=== PATIENT | male | born 2000 | race American Indian/Alaskan Native ===

== ENCOUNTER 2020-06-13 01:24 | Emergency (ER) | payer SELFPAY ==
[2020-06-13] MEDS ORDERED: levETIRAcetam 1000 MG/NS 0.75% 1,000 MG/100 ML BAG IV ONE (01:54)
--- NOTE | 2020-06-13 01:58 | Emergency Department Report ---
ED Seizure HPI - General Stated Complaint: SZ Time Seen by Provider: 06/13/20 01:53 - History of Present Illness Initial Comments: Patient is 20 years old male with history of seizure on Keppra. Patient brought to the emergency room via EMS from home after patient had 1 episode of generalized tonic-clonic seizure witnessed by family. EMS stated that upon arrival patient is postictal. Upon arrival to the ER patient is alert, oriented x3 no acute distress. Patient stated that he is taking Keppra 750 mg twice a day however he ran out of his medication for the last 2 to 3 days. Patient denied any fever or chills. No head injury or any other trauma. MD Complaint: seizure -: Sudden, This evening Description of Episode: loss of consciousness, tonic-clonic movement, bladder incontinence, post-event confusion Witnessed:: Yes Trauma: No Seizure History: known seizure disorder Place: home Possible Precipitating Event: none Associated Symptoms: denies other symptoms Treatments Prior to Arrival: none - Related Data Allergies Allergy/AdvReac Type Severity Reaction Status Date / Time No Known Allergies Allergy Unverified 06/13/20 01:58 ED Review of Systems ROS: Stated complaint: SZ Other details as noted in HPI Comment: All other systems reviewed and negative Constitutional: denies: chills, fever Respiratory: denies: cough, shortness of breath, SOB with exertion Cardiovascular: denies: chest pain, palpitations Gastrointestinal: denies: abdominal pain, nausea, vomiting Musculoskeletal: denies: back pain Neurological: denies: headache, weakness, numbness, paresthesias, confusion ED Physical Exam - General General appearance: alert, in no apparent distress - Head Head exam: Present: atraumatic, normocephalic, normal inspection - Eye Eye exam: Present: normal appearance, PERRL - ENT ENT exam: Present: normal exam, normal orophraynx, mucous membranes moist - Neck Neck exam: Present: normal inspection, full ROM. Absent: tenderness, meningismus - Respiratory Respiratory exam: Present: normal lung sounds bilaterally - Cardiovascular Cardiovascular Exam: Present: regular rate, normal rhythm, normal heart sounds - GI/Abdominal GI/Abdominal exam: Present: soft, normal bowel sounds. Absent: distended, tenderness, guarding, rebound, rigid, organomegaly, mass, bruit, pulsatile mass, hernia - Extremities Exam Extremities exam: Present: normal inspection, full ROM, normal capillary refill. Absent: tenderness, pedal edema, joint swelling, calf tenderness - Back Exam Back exam: Present: normal inspection, full ROM. Absent: CVA tenderness (R), CVA tenderness (L) - Neurological Exam Neurological exam: Present: alert, oriented X3, CN II-XII intact - Psychiatric Psychiatric exam: Present: normal mood - Skin Skin exam: Present: warm, intact, normal color ED Course Vital Signs 06/13/20 06/13/20 01:45 02:30 Temperature 98.8 F Pulse Rate 82 75 Respiratory 22 24 Rate Blood Pressure 131/68 Blood Pressure 131/84 [Left] O2 Sat by Pulse 95 95 Oximetry ED Medical Decision Making - Lab Data Result diagrams: 06/13/20 02:07 06/13/20 02:07 - Medical Decision Making Patient is 20 years old male with history of seizure on Keppra. Patient brought to the emergency room via EMS from home after patient had 1 episode of generalized tonic-clonic seizure witnessed by family. EMS stated that upon arrival patient is postictal. Upon arrival to the ER patient is alert, oriented x3 no acute distress. Patient stated that he is taking Keppra 750 mg twice a day however he ran out of his medication for the last 2 to 3 days. Patient denied any fever or chills. No head injury or any other trauma. Patient received Keppra 1 g IV. No seizure activity observed in the ER. Labs reviewed and is unremarkable. Patient given a refill of his Keppra and advised to follow-up with his neurologist in the next 2 to 3 days and to return to the ER if he develop any new symptoms. Critical care attestation.: If time is entered above; I have spent that time in minutes in the direct care of this critically ill patient, excluding procedure time. ED Disposition Clinical Impression: Seizure Disposition: DC-01 TO HOME OR SELFCARE Is pt being admited?: No Condition: Stable Instructions: Seizure, Adult, [id number] Referrals: PRIMARY CARE, [Primary Care Provider] - 3-5 Days
[2020-06-13 02:20] LABS: Basophils % (Auto) 0.5 % (0.0-1.8); Eosinophils # (Auto) 0.3 K/mm3 (0.0-0.4); Eosinophils % (Auto) 3.5 % (0.0-4.3); Hematocrit 44.4 % (35.5-45.6); Hemoglobin 15.4 gm/dl (11.8-15.2); Lymphocytes # (Auto) 1.7 K/mm3 (1.2-5.4); Lymphocytes % (Auto) 22.4 % (13.4-35.0); Mean Corpuscular HGB Conc 35 % (32-34); Mean Corpuscular Volume 82 fl (84-94); Monocytes # (Auto) 0.6 K/mm3 (0.0-0.8); Monocytes % (Auto) 8.2 % (0.0-7.3); Platelet Count 174 K/mm3 (140-440); Red Blood Count 5.42 M/mm3 (3.65-5.03); Red Cell Distribution Width 13.8 % (13.2-15.2)
[2020-06-13 02:43] LABS: Alanine Aminotransferase 31 units/L (7-56); Albumin 3.7 g/dL (3.9-5); BUN/Creatinine Ratio 15; Blood Urea Nitrogen 15 mg/dL (9-20); Calcium 8.7 mg/dL (8.4-10.2); Hemolysis Index 12
[2020-06-13 02:44] LABS: Bilirubin,Direct < 0.2 mg/dL (0-0.2)
[2020-06-13 05:37] VITALS: BP 130/85
== END 2020-06-13 05:48 | disposition home or self-care (01) ==
LOC: ED 01:24
DX: G40.909 Epilepsy, unspecified, not intractable, without status epilepticus (principal)
CPT/HCPCS: 36415; 80048; 80076; 85025; 96365; 99284; J1953